=== PATIENT | male | born 1960 | race Caucasian/White ===

== ENCOUNTER 2019-12-30 20:01 | Emergency (ER) | payer OTHER ==
[2019-12-30 20:13] VITALS: BP 151/96
--- NOTE | 2019-12-30 20:18 | ED Physician Documentation ---
History of Present Illness - Stated complaint Stated Complaint: ALLERGIC REACTION - Chief complaint Chief Complaint: Allergic Rx - History obtained from History obtained from: Patient (He is been on lisinopril long-term. Without specific cause his lower lip swelled up tonight. It is painless just swollen. He notes no changes in the back of his throat or tongue. No shortness of breath.) Review of Systems Constitutional: reports: Reviewed and negative Nose: reports: Reviewed and negative Throat: reports: Reviewed and negative Cardiac: reports: Reviewed and negative PD ED PE NORMAL - Vitals Vital signs reviewed: Yes - General General: Alert and oriented X 3, No acute distress - HEENT HEENT: Other (He has angioedema of the lip. The tongue and oropharynx otherwise appear normal.) - Neck Neck: Supple, no meningeal sign, No bony TTP - Neuro Neuro: Alert and oriented X 3, Normal speech Results - Vitals Vitals: Vital Signs - 24 hr 12/30/19 20:10 Temperature 37.0 C Heart Rate 77 Respiratory 14 Rate Blood Pressure 151/96 H O2 Saturation 100 Oxygen O2 Source Room air PD MEDICAL DECISION MAKING - ED course ED course: This is a gentleman with FELIBERTO inhibitor induced injury isolated to the lip. Discussed lack of effective medications for this and the necessity to stop FELIBERTO inhibitor's. He will have someone watch him at home but since there is no tongue or retropharyngeal involvement I do not see the need for prolonged observation. Departure - Departure Disposition: Home, Self Care Clinical Impression: FELIBERTO inhibitor-aggravated angioedema Qualifiers: Encounter type: initial encounter Qualified Code(s): T78.3XXA - Angioneurotic edema, initial encounter; T46.4X5A - Adverse effect of awwpqfrqwyd-bimazstzmm-xxncxx inhibitors, initial encounter Condition: Good Record reviewed to determine appropriate education?: Yes Comments: You need to stop taking lisinopril. You can never take a medication in that class again. Follow-up with your doctor on Thursday for an alternative agent. Return if worse.
== END 2019-12-30 20:22 | disposition home or self-care (01) ==
LOC: ED 20:01
DX: T78.3XXA Angioneurotic edema, initial encounter (principal); T46.4X5A Adverse effect of angiotensin-converting-enzyme inhibitors, initial encounter
CPT/HCPCS: 99281; 99283